=== PATIENT | male | born 1960 | race Caucasian/White ===

== ENCOUNTER 2024-01-07 15:13 | Emergency (ER) | payer MEDICAID, OTHER | END 2024-01-07 15:54 | disposition left against medical advice (07) | LOC: ER 15:14 | DX: F29 Unspecified psychosis not due to a substance or known physiological condition (principal); Z53.21 Procedure and treatment not carried out due to patient leaving prior to being seen by health care provider ==

== ENCOUNTER 2024-01-07 16:01 | Emergency (ER) | payer MEDICAID, OTHER ==
[~2024-01-07] VITALS: Ht 167.6 cm; Wt 68.0 kg
[2024-01-07 16:24] VITALS: O2SAT 100
== END 2024-01-07 17:20 | disposition left against medical advice (07) ==
LOC: ER 16:02
DX: Z76.0 Encounter for issue of repeat prescription (principal); Z53.21 Procedure and treatment not carried out due to patient leaving prior to being seen by health care provider
CPT/HCPCS: A4606; A4663